=== PATIENT | male | born 1960 | race Caucasian/White ===

== ENCOUNTER 2023-11-14 19:18 | Inpatient (IN) | payer MEDICARE, OTHER ==
[~2023-11-14] VITALS: Ht 182.9 cm; Wt 73.9 kg
[2023-11-14] MEDS ORDERED: DIVA500T2 PO (19:41)
[2023-11-14] MEDS ORDERED: HYDR50TA62 PO (19:41)
[2023-11-14] MEDS ORDERED: CLOZ100T32 PO (19:41)
[2023-11-14] MEDS ORDERED: BENZ1TAB7 PO (19:41)
[2023-11-14] MEDS ORDERED: DICL50TA7 PO (19:53)
[2023-11-14] MEDS ORDERED: PANT40TA49 PO (19:53)
[2023-11-14] MEDS ORDERED: ALBU90AE INH (19:53)
[2023-11-14] MEDS ORDERED: FLUT1BLS6 IH (19:53)
[2023-11-14] MEDS ORDERED: DOCU100C36 PO (19:53)
[2023-11-14] MEDS ORDERED: FLAX100032 PO (19:53)
[2023-11-14] MEDS ORDERED: MULT-1045 PO (19:53)
[2023-11-14] MEDS ORDERED: TAMS-3 PO (19:53)
[2023-11-14] MEDS ORDERED: ASCO500C18 PO (19:53)
[2023-11-14] MEDS ORDERED: OLANZAPINE 5 MG TABLET PO ONE (20:00)
[2023-11-14 20:21] LABS: *BILIRUBIN,URIN NEGATIVE (NEGATIVE); *BLOOD, URINE NEGATIVE (NEGATIVE); *CLARITY,URINE CLEAR (CLEAR); *COLOR,URINE YELLOW (YELLOW); *KETONES,URINE 1+ (NEGATIVE); *PROTEIN,URINE NEGATIVE (NEGATIVE); LEUKOCYTE ESTERASE ,URINE NEGATIVE (NEGATIVE); NITRITE, URINE NEGATIVE (NEGATIVE); UGLUCOSE NEGATIVE (NEGATIVE)
[2023-11-14] MEDS ORDERED: OLANZAPINE 5 MG TABLET ONE (20:28)
[2023-11-14 20:29] LABS: *AMPHETAMINE, URINE NEGATIVE (NEGATIVE); *BARBITURATE, URINE NEGATIVE (NEGATIVE); *BENZODIAZEPINE, URINE NEGATIVE (NEGATIVE); *CANNABINOID, URINE NEGATIVE (NEGATIVE); *COCCAINE, URINE NEGATIVE (NEGATIVE); *OPIATE, URINE NEGATIVE (NEGATIVE); *PHENCYCLIDINE SCREEN,URINE NEGATIVE (NEGATIVE); FENTANYL, URINE NEGATIVE (NEGATIVE)
[2023-11-14 20:31] LABS: BASOPHILS # (AUTO) 0.1 K/UL (0.0-0.2); BASOPHILS % (AUTO) 0.8 % (0.0-2.0); EOSINOPHILS # (AUTO) 0.1 K/uL (0.0-0.7); HEMATOCRIT 35.3 % (36.7-47.1); HEMOGLOBIN 12.2 g/dL (12.5-16.3); LYMPHOCYTES # (AUTO) 2.9 K/uL (0.8-4.8); MEAN CORPUSCULAR HEMOGLOBIN 32.8 uug (23.8-33.4); MEAN CORPUSCULAR HGB CONC 35 g/dL (32.5-36.3); MEAN CORPUSCULAR VOLUME 94.8 fL (73.0-96.2); MONOCYTES # (AUTO) 0.3 K/uL (0.1-1.30); MONOCYTES % (AUTO) 4.3 % (0.0-11.0); NEUTROPHILS # (AUTO) 3.8 K/uL (1.8-8.9); NEUTROPHILS % (AUTO) 53.9 % (38.5-71.5); PLATELET COUNT (AUTO) 154 K/uL (152-348); RED BLOOD CELL COUNT(AUTO) 3.73 MIL/uL (4.06-5.63); RED CELL DISTRIBUTION WIDTH 14.1 % (12.1-16.2); WHITE BLOOD COUNT (AUTO) 7.1 K/uL (3.6-10.2)
[2023-11-14 20:40] LABS: CALCIUM 8.5 mg/dL (8.5-10.1); CARBON DIOXIDE 29 mmol/L (21-32); CHLORIDE 107 mmol/L (98-107); CREATININE 0.7 mg/dL (0.6-1.3); GLUCOSE 97 mg/dL (74-106); POTASSIUM 4.2 mmol/L (3.5-5.1); SODIUM SERUM 143 mmol/L (136-145); UREA NITROGEN, BLOOD 22 mg/dL (7-18)
[2023-11-14 20:43] LABS: ETHANOL < 3 MG/DL (0-10)
[2023-11-14 20:46] LABS: ACETAMINOPHEN < 2.0 ug/mL (10-30); ALANINE AMINOTRANSFERASE 30 U/L (16-63); ALBUMIN 3.1 g/dL (3.4-5.0); ALKALINE PHOSPHATASE 87 U/L (50-136); ASPARTATE AMINOTRANSFERASE 17 U/L (15-37); BILIRUBIN,DIRECT 0.2 mg/dL (0.0-0.2); BILIRUBIN,TOTAL 0.5 mg/dL (0.2-1.0); TOTAL PROTEIN, SERUM 5.9 g/dL (6.4-8.2); VALPROIC ACID 69 ug/mL (50-100)
[2023-11-14 20:53] LABS: THYROID STIMULATING HORMONE 2.204 mIU/mL (0.358-3.740)
[2023-11-15 01:00] VITALS: BP 119/78; TEMP 97.8; O2SAT 93
[2023-11-15] MEDS ORDERED: BLOOD SUGAR DIAGNOSTIC 1 EACH STRIP VI ONE (01:00)
[2023-11-15] MEDS ORDERED: MAGNESIUM HYDROXIDE 30 ML LIQUID UDC PO PRN (01:00)
[2023-11-15] MEDS ORDERED: MAG HYDROX/AL HYDROX/SIMETH 30 ML LIQUID UDC PO PRN (01:00)
[2023-11-15] MEDS: ZOLPIDEM 5 MG TABLET PO PRN ×2 (01:51→21:40)
[2023-11-15 08:35] VITALS: BP 102/78; TEMP 98.4; O2SAT 94
[2023-11-15] MEDS: BENZTROPINE MESYLATE 1 MG TABLET PO SCH ×2 (09:15→16:10)
[2023-11-15] MEDS: DIVALPROEX 500 MG TABLET.DR PO SCH ×3 (09:16→16:10)
[2023-11-15] MEDS: risperiDONE 2 MG TABLET PO SCH ×2 (09:16→16:10)
[2023-11-15] MEDS ORDERED: ALBUTEROL SULFATE 1.25 MG/3 ML NEBU NEB PRN (12:30)
[2023-11-15] MEDS ORDERED: HOME MED MISCELLANEOUS XX SCH (12:30)
[2023-11-15] MEDS ORDERED: DICLOFENAC 25 MG TABLET.DR PO PRN (12:30)
[2023-11-15] MEDS: ASCORBIC ACID 500 MG TABLET PO SCH (12:59)
[2023-11-15] MEDS: LORAZEPAM 1 MG TABLET PO PRN ×2 (14:32→23:31)
[2023-11-15 15:44] VITALS: BP 98/75; TEMP 98; O2SAT 96
[2023-11-15] MEDS: FLUTICASONE/VILANTEROL 1 EACH BLST.W.DEV INH SCH (16:18)
[2023-11-15 20:31] VITALS: BP 100/71; TEMP 98.1; O2SAT 93
[2023-11-15] MEDS: TAMSULOSIN HCL 0.4 MG CAP.SR.24H PO SCH (21:40)
[2023-11-15] MEDS: DOCUSATE SODIUM 100 MG CAPSULE PO SCH (21:40)
[2023-11-16] MEDS: PANTOPRAZOLE SODIUM 40 MG TABLET.DR PO SCH (06:03)
[2023-11-16 07:45] VITALS: BP 109/80; TEMP 98.4; O2SAT 98
[2023-11-16] MEDS: ASCORBIC ACID 500 MG TABLET PO SCH (08:48)
[2023-11-16] MEDS: risperiDONE 2 MG TABLET PO SCH ×2 (08:48→17:26)
[2023-11-16] MEDS: DIVALPROEX 500 MG TABLET.DR PO SCH ×3 (08:48→17:26)
[2023-11-16] MEDS: BENZTROPINE MESYLATE 1 MG TABLET PO SCH ×2 (08:48→17:26)
[2023-11-16] MEDS: MULTIVITAMINS,THERAPEUTIC TABLET PO SCH (08:48)
[2023-11-16] MEDS: FLUTICASONE/VILANTEROL 1 EACH BLST.W.DEV INH SCH (08:52)
[2023-11-16 16:39] VITALS: BP 120/72; TEMP 98.1; O2SAT 98
[2023-11-16 20:00] VITALS: BP 121/81; O2SAT 97
[2023-11-16] MEDS: LORAZEPAM 1 MG TABLET PO PRN (20:33)
[2023-11-16] MEDS: DOCUSATE SODIUM 100 MG CAPSULE PO SCH (20:33)
[2023-11-16] MEDS: TAMSULOSIN HCL 0.4 MG CAP.SR.24H PO SCH (20:33)
[2023-11-16] MEDS: ZOLPIDEM 5 MG TABLET PO PRN (23:06)
[2023-11-16] MEDS: ACETAMINOPHEN 325 MG TABLET PO PRN (23:06)
[2023-11-17] MEDS: PANTOPRAZOLE SODIUM 40 MG TABLET.DR PO SCH (06:33)
[2023-11-17] MEDS: LORAZEPAM 1 MG TABLET PO PRN (07:56)
[2023-11-17 07:59] VITALS: BP 102/65; TEMP 98.1; O2SAT 98
[2023-11-17] MEDS: risperiDONE 2 MG TABLET PO SCH ×2 (08:25→16:31)
[2023-11-17] MEDS: ASCORBIC ACID 500 MG TABLET PO SCH (08:25)
[2023-11-17] MEDS: MULTIVITAMINS,THERAPEUTIC TABLET PO SCH (08:25)
[2023-11-17] MEDS: DIVALPROEX 500 MG TABLET.DR PO SCH ×3 (08:25→16:31)
[2023-11-17] MEDS: BENZTROPINE MESYLATE 1 MG TABLET PO SCH ×2 (08:25→16:31)
[2023-11-17] MEDS: FLUTICASONE/VILANTEROL 1 EACH BLST.W.DEV INH SCH (08:26)
[2023-11-17 16:08] VITALS: BP 104/72; TEMP 98; O2SAT 99
[2023-11-17 20:00] VITALS: BP 103/70; TEMP 97.9; O2SAT 97
[2023-11-17] MEDS: TAMSULOSIN HCL 0.4 MG CAP.SR.24H PO SCH (20:12)
[2023-11-17] MEDS: DOCUSATE SODIUM 100 MG CAPSULE PO SCH (20:13)
[2023-11-18] MEDS: ZOLPIDEM 5 MG TABLET PO PRN ×2 (00:03→22:20)
[2023-11-18] MEDS: PANTOPRAZOLE SODIUM 40 MG TABLET.DR PO SCH (07:06)
[2023-11-18 08:06] VITALS: BP 107/78; TEMP 98.1; O2SAT 97
[2023-11-18] MEDS: FLUTICASONE/VILANTEROL 1 EACH BLST.W.DEV INH SCH (08:26)
[2023-11-18] MEDS: BENZTROPINE MESYLATE 1 MG TABLET PO SCH ×2 (08:26→16:16)
[2023-11-18] MEDS: DIVALPROEX 500 MG TABLET.DR PO SCH ×3 (08:26→16:16)
[2023-11-18] MEDS: MULTIVITAMINS,THERAPEUTIC TABLET PO SCH (08:26)
[2023-11-18] MEDS: ASCORBIC ACID 500 MG TABLET PO SCH (08:26)
[2023-11-18] MEDS: risperiDONE 2 MG TABLET PO SCH ×2 (08:26→16:16)
[2023-11-18 16:21] VITALS: BP 107/81; TEMP 98.3; O2SAT 98
[2023-11-18 20:00] VITALS: BP 105/66; TEMP 98.2; O2SAT 95
[2023-11-18] MEDS: DOCUSATE SODIUM 100 MG CAPSULE PO SCH (20:44)
[2023-11-18] MEDS: TAMSULOSIN HCL 0.4 MG CAP.SR.24H PO SCH (20:44)
[2023-11-19] MEDS: PANTOPRAZOLE SODIUM 40 MG TABLET.DR PO SCH (07:00)
[2023-11-19 08:06] VITALS: BP 123/84; TEMP 98.4; O2SAT 96
[2023-11-19] MEDS: FLUTICASONE/VILANTEROL 1 EACH BLST.W.DEV INH SCH (09:46)
[2023-11-19] MEDS: BENZTROPINE MESYLATE 1 MG TABLET PO SCH ×2 (09:47→17:47)
[2023-11-19] MEDS: risperiDONE 2 MG TABLET PO SCH ×2 (09:50→17:46)
[2023-11-19] MEDS: DIVALPROEX 500 MG TABLET.DR PO SCH ×3 (09:50→17:46)
[2023-11-19] MEDS: ASCORBIC ACID 500 MG TABLET PO SCH (09:50)
[2023-11-19] MEDS: MULTIVITAMINS,THERAPEUTIC TABLET PO SCH (09:51)
[2023-11-19 15:34] VITALS: BP 108/69; TEMP 97.8; O2SAT 96
[2023-11-19 20:00] VITALS: BP 102/79; TEMP 98; O2SAT 97
[2023-11-19] MEDS: TAMSULOSIN HCL 0.4 MG CAP.SR.24H PO SCH (20:55)
[2023-11-19] MEDS: DOCUSATE SODIUM 100 MG CAPSULE PO SCH (20:55)
[2023-11-19] MEDS: LORAZEPAM 1 MG TABLET PO PRN (20:55)
[2023-11-19] MEDS: ACETAMINOPHEN 325 MG TABLET PO PRN (22:59)
[2023-11-20] MEDS: PANTOPRAZOLE SODIUM 40 MG TABLET.DR PO SCH (07:09)
[2023-11-20 08:34] VITALS: BP 100/58; TEMP 98; O2SAT 94
[2023-11-20] MEDS: FLUTICASONE/VILANTEROL 1 EACH BLST.W.DEV INH SCH (10:08)
[2023-11-20] MEDS: risperiDONE 2 MG TABLET PO SCH ×2 (10:08→18:12)
[2023-11-20] MEDS: BENZTROPINE MESYLATE 1 MG TABLET PO SCH ×2 (10:08→18:11)
[2023-11-20] MEDS: MULTIVITAMINS,THERAPEUTIC TABLET PO SCH (10:08)
[2023-11-20] MEDS: DIVALPROEX 500 MG TABLET.DR PO SCH (10:09)
[2023-11-20] MEDS: ASCORBIC ACID 500 MG TABLET PO SCH (10:09)
[2023-11-20] MEDS: LORAZEPAM 1 MG TABLET PO PRN ×2 (11:31→20:40)
[2023-11-20] MEDS: ACETAMINOPHEN 325 MG TABLET PO PRN (11:32)
[2023-11-20 15:42] VITALS: BP 102/63; TEMP 98; O2SAT 98
[2023-11-20] MEDS: DIVALPROEX SPRINKLE 125 MG CAP.SPRINK PO SCH ×2 (15:45→18:12)
[2023-11-20 19:59] VITALS: BP 101/61; TEMP 98.1; O2SAT 95
[2023-11-20] MEDS: DOCUSATE SODIUM 100 MG CAPSULE PO SCH (20:40)
[2023-11-20] MEDS: TAMSULOSIN HCL 0.4 MG CAP.SR.24H PO SCH (20:40)
[2023-11-20] MEDS: ZOLPIDEM 5 MG TABLET PO PRN (23:47)
[2023-11-21] MEDS: ACETAMINOPHEN 325 MG TABLET PO PRN (00:03)
[2023-11-21] MEDS: PANTOPRAZOLE SODIUM 40 MG TABLET.DR PO SCH (06:45)
[2023-11-21 07:50] VITALS: BP 90/61; TEMP 97.8; O2SAT 99
[2023-11-21 08:00] VITALS: BP 115/66; TEMP 98; O2SAT 99
[2023-11-21] MEDS: DIVALPROEX SPRINKLE 125 MG CAP.SPRINK PO SCH ×3 (08:24→16:44)
[2023-11-21] MEDS: BENZTROPINE MESYLATE 1 MG TABLET PO SCH ×2 (08:24→16:45)
[2023-11-21] MEDS: MULTIVITAMINS,THERAPEUTIC TABLET PO SCH (08:24)
[2023-11-21] MEDS: ASCORBIC ACID 500 MG TABLET PO SCH (08:24)
[2023-11-21] MEDS: risperiDONE 2 MG TABLET PO SCH ×2 (08:25→16:44)
[2023-11-21] MEDS: FLUTICASONE/VILANTEROL 1 EACH BLST.W.DEV INH SCH (09:27)
[2023-11-21 15:11] VITALS: BP 101/71; TEMP 98; O2SAT 98
[2023-11-21 20:10] VITALS: BP 115/77; TEMP 98.1; O2SAT 96
[2023-11-21] MEDS: DOCUSATE SODIUM 100 MG CAPSULE PO SCH (20:18)
[2023-11-21] MEDS: TAMSULOSIN HCL 0.4 MG CAP.SR.24H PO SCH (20:18)
[2023-11-21] MEDS: LORAZEPAM 1 MG TABLET PO PRN (21:00)
[2023-11-22] MEDS: ACETAMINOPHEN 325 MG TABLET PO PRN (05:55)
[2023-11-22] MEDS: PANTOPRAZOLE SODIUM 40 MG TABLET.DR PO SCH (06:02)
[2023-11-22 08:42] VITALS: BP 106/80; TEMP 98; O2SAT 100
[2023-11-22] MEDS: MULTIVITAMINS,THERAPEUTIC TABLET PO SCH (08:49)
[2023-11-22] MEDS: BENZTROPINE MESYLATE 1 MG TABLET PO SCH ×2 (08:49→16:12)
[2023-11-22] MEDS: ASCORBIC ACID 500 MG TABLET PO SCH (08:50)
[2023-11-22] MEDS: risperiDONE 2 MG TABLET PO SCH ×2 (08:50→17:13)
[2023-11-22] MEDS: DIVALPROEX SPRINKLE 125 MG CAP.SPRINK PO SCH ×3 (08:52→16:12)
[2023-11-22] MEDS: FLUTICASONE/VILANTEROL 1 EACH BLST.W.DEV INH SCH (09:00)
[2023-11-22 15:12] VITALS: BP 112/72; TEMP 98; O2SAT 98
[2023-11-22] MEDS: DOCUSATE SODIUM 100 MG CAPSULE PO SCH (20:13)
[2023-11-22] MEDS: TAMSULOSIN HCL 0.4 MG CAP.SR.24H PO SCH (20:13)
[2023-11-22] MEDS: LORAZEPAM 1 MG TABLET PO PRN (20:17)
[2023-11-22 20:19] VITALS: BP 110/74; TEMP 98.1; O2SAT 97
[2023-11-23] MEDS: PANTOPRAZOLE SODIUM 40 MG TABLET.DR PO SCH (06:12)
[2023-11-23 07:56] VITALS: BP 104/75; TEMP 98.1; O2SAT 97
[2023-11-23] MEDS: LORAZEPAM 1 MG TABLET PO PRN (08:42)
[2023-11-23] MEDS: BENZTROPINE MESYLATE 1 MG TABLET PO SCH ×2 (08:42→18:01)
[2023-11-23] MEDS: ASCORBIC ACID 500 MG TABLET PO SCH (08:42)
[2023-11-23] MEDS: MULTIVITAMINS,THERAPEUTIC TABLET PO SCH (08:42)
[2023-11-23] MEDS: risperiDONE 2 MG TABLET PO SCH ×2 (08:42→18:01)
[2023-11-23] MEDS: DIVALPROEX SPRINKLE 125 MG CAP.SPRINK PO SCH ×3 (08:42→18:01)
[2023-11-23] MEDS: FLUTICASONE/VILANTEROL 1 EACH BLST.W.DEV INH SCH (09:03)
[2023-11-23 16:12] VITALS: BP 110/73; TEMP 98; O2SAT 97
[2023-11-23 20:00] VITALS: BP 105/80; TEMP 97.9; O2SAT 96
[2023-11-23] MEDS: DOCUSATE SODIUM 100 MG CAPSULE PO SCH (21:25)
[2023-11-23] MEDS: TAMSULOSIN HCL 0.4 MG CAP.SR.24H PO SCH (21:25)
[2023-11-23] MEDS: ZOLPIDEM 5 MG TABLET PO PRN (23:25)
[2023-11-24] MEDS: ZOLPIDEM 5 MG TABLET PO PRN (02:59)
[2023-11-24] MEDS: PANTOPRAZOLE SODIUM 40 MG TABLET.DR PO SCH (06:53)
[2023-11-24 07:15] LABS: BASOPHILS # (AUTO) 0.1 K/UL (0.0-0.2); BASOPHILS % (AUTO) 1.2 % (0.0-2.0); EOSINOPHILS # (AUTO) 0.1 K/uL (0.0-0.7); EOSINOPHILS % (AUTO) 1.4 % (0.0-7.0); HEMATOCRIT 37.2 % (36.7-47.1); HEMOGLOBIN 12.7 g/dL (12.5-16.3); LYMPHOCYTES # (AUTO) 2.6 K/uL (0.8-4.8); LYMPHOCYTES % (AUTO) 30.2 % (20.5-51.5); MEAN CORPUSCULAR HEMOGLOBIN 32.3 uug (23.8-33.4); MEAN CORPUSCULAR HGB CONC 34 g/dL (32.5-36.3); MEAN CORPUSCULAR VOLUME 94.7 fL (73.0-96.2); MONOCYTES # (AUTO) 0.7 K/uL (0.1-1.30); MONOCYTES % (AUTO) 8.3 % (0.0-11.0); NEUTROPHILS % (AUTO) 58.9 % (38.5-71.5); PLATELET COUNT (AUTO) 192 K/uL (152-348); RED BLOOD CELL COUNT(AUTO) 3.92 MIL/uL (4.06-5.63); RED CELL DISTRIBUTION WIDTH 13.9 % (12.1-16.2); WHITE BLOOD COUNT (AUTO) 8.5 K/uL (3.6-10.2)
[2023-11-24 07:18] LABS: DIFFERENTIAL COMMENT 1
[2023-11-24 07:32] LABS: ALBUMIN 3.2 g/dL (3.4-5.0); BILIRUBIN,TOTAL 0.5 mg/dL (0.2-1.0); CALCIUM 8.5 mg/dL (8.5-10.1); CREATININE 0.7 mg/dL (0.6-1.3); POTASSIUM 4.6 mmol/L (3.5-5.1); TOTAL PROTEIN, SERUM 6.3 g/dL (6.4-8.2)
[2023-11-24 08:10] VITALS: BP 100/74; TEMP 98; O2SAT 98
[2023-11-24] MEDS: BENZTROPINE MESYLATE 1 MG TABLET PO SCH ×2 (08:55→17:07)
[2023-11-24] MEDS: FLUTICASONE/VILANTEROL 1 EACH BLST.W.DEV INH SCH (08:55)
[2023-11-24] MEDS: MULTIVITAMINS,THERAPEUTIC TABLET PO SCH (08:56)
[2023-11-24] MEDS: ASCORBIC ACID 500 MG TABLET PO SCH (08:56)
[2023-11-24] MEDS: DIVALPROEX SPRINKLE 125 MG CAP.SPRINK PO SCH ×3 (08:56→17:08)
[2023-11-24] MEDS: risperiDONE 2 MG TABLET PO SCH ×2 (08:56→17:07)
[2023-11-24 16:43] VITALS: BP 92/60; TEMP 98.1; O2SAT 98
[2023-11-24 20:00] VITALS: BP 104/57; TEMP 98.2; O2SAT 94
[2023-11-24] MEDS: TAMSULOSIN HCL 0.4 MG CAP.SR.24H PO SCH (20:24)
[2023-11-24] MEDS: DOCUSATE SODIUM 100 MG CAPSULE PO SCH (20:24)
[2023-11-24] MEDS: ACETAMINOPHEN 325 MG TABLET PO PRN (21:53)
[2023-11-25] MEDS: LORAZEPAM 1 MG TABLET PO PRN (04:04)
[2023-11-25] MEDS: PANTOPRAZOLE SODIUM 40 MG TABLET.DR PO SCH (06:11)
[2023-11-25 07:47] VITALS: BP 98/64; TEMP 98.1; O2SAT 98
[2023-11-25] MEDS: BENZTROPINE MESYLATE 1 MG TABLET PO SCH ×2 (08:44→16:50)
[2023-11-25] MEDS: ASCORBIC ACID 500 MG TABLET PO SCH (08:44)
[2023-11-25] MEDS: MULTIVITAMINS,THERAPEUTIC TABLET PO SCH (08:44)
[2023-11-25] MEDS: risperiDONE 2 MG TABLET PO SCH ×2 (08:45→16:50)
[2023-11-25] MEDS: DIVALPROEX SPRINKLE 125 MG CAP.SPRINK PO SCH ×3 (08:45→16:50)
[2023-11-25] MEDS: FLUTICASONE/VILANTEROL 1 EACH BLST.W.DEV INH SCH (08:45)
[2023-11-25 16:09] VITALS: BP 104/64; TEMP 98.3; O2SAT 98
[2023-11-25 20:01] VITALS: BP 101/62; TEMP 98.2; O2SAT 95
[2023-11-25] MEDS: DOCUSATE SODIUM 100 MG CAPSULE PO SCH (20:31)
[2023-11-25] MEDS: TAMSULOSIN HCL 0.4 MG CAP.SR.24H PO SCH (20:32)
[2023-11-25] MEDS: ZOLPIDEM 5 MG TABLET PO PRN (21:22)
[2023-11-25] MEDS: ACETAMINOPHEN 325 MG TABLET PO PRN (23:08)
[2023-11-26] MEDS: PANTOPRAZOLE SODIUM 40 MG TABLET.DR PO SCH (06:13)
[2023-11-26 08:00] VITALS: BP 119/79; TEMP 97.9; O2SAT 96
[2023-11-26] MEDS: risperiDONE 2 MG TABLET PO SCH ×2 (09:11→17:33)
[2023-11-26] MEDS: ASCORBIC ACID 500 MG TABLET PO SCH (09:11)
[2023-11-26] MEDS: DIVALPROEX SPRINKLE 125 MG CAP.SPRINK PO SCH ×3 (09:11→17:33)
[2023-11-26] MEDS: BENZTROPINE MESYLATE 1 MG TABLET PO SCH ×2 (09:11→17:33)
[2023-11-26] MEDS: FLUTICASONE/VILANTEROL 1 EACH BLST.W.DEV INH SCH (09:12)
[2023-11-26] MEDS: MULTIVITAMINS,THERAPEUTIC TABLET PO SCH (09:12)
[2023-11-26 16:00] VITALS: BP 98/66; TEMP 97.8; O2SAT 100
[2023-11-26 19:34] VITALS: BP 101/70; TEMP 98; O2SAT 98
[2023-11-26] MEDS: TAMSULOSIN HCL 0.4 MG CAP.SR.24H PO SCH (21:04)
[2023-11-26] MEDS: DOCUSATE SODIUM 100 MG CAPSULE PO SCH (21:04)
[2023-11-26] MEDS: ZOLPIDEM 5 MG TABLET PO PRN (22:10)
[2023-11-27] MEDS: LORAZEPAM 1 MG TABLET PO PRN (01:58)
[2023-11-27] MEDS: PANTOPRAZOLE SODIUM 40 MG TABLET.DR PO SCH (06:55)
[2023-11-27 08:00] VITALS: BP 106/64; TEMP 97.9; O2SAT 100
[2023-11-27] MEDS: BENZTROPINE MESYLATE 1 MG TABLET PO SCH (08:59)
[2023-11-27] MEDS: DIVALPROEX SPRINKLE 125 MG CAP.SPRINK PO SCH ×2 (09:00→13:03)
[2023-11-27] MEDS: FLUTICASONE/VILANTEROL 1 EACH BLST.W.DEV INH SCH (09:00)
[2023-11-27] MEDS: MULTIVITAMINS,THERAPEUTIC TABLET PO SCH (09:00)
[2023-11-27] MEDS: ASCORBIC ACID 500 MG TABLET PO SCH (09:00)
[2023-11-27] MEDS: risperiDONE 2 MG TABLET PO SCH (09:00)
== END 2023-11-27 14:00 | DRG 885 ==
LOC: ER 19:25 → GPS 23:55
PROVIDERS: ADMIT Psychiatry & Neurology Psychiatry; ATTEND Nurse Practitioner Acute Care
DX: F20.0 Paranoid schizophrenia (principal); E44.0 Moderate protein-calorie malnutrition; Z68.22 Body mass index [BMI] 22.0-22.9, adult; J44.9 Chronic obstructive pulmonary disease, unspecified; E88.09 Other disorders of plasma-protein metabolism, not elsewhere classified; D64.9 Anemia, unspecified; K59.00 Constipation, unspecified; G24.01 Drug induced subacute dyskinesia; Z79.899 Other long term (current) drug therapy; F10.21 Alcohol dependence, in remission; R41.9 Unspecified symptoms and signs involving cognitive functions and awareness
CPT/HCPCS: 36415; 80164; 84443; 85025; 93005; A6209; G0480

== ENCOUNTER 2023-12-04 18:35 | Inpatient (IN) | payer MEDICARE, OTHER ==
[~2023-12-04] VITALS: Ht 182.9 cm; Wt 70.3 kg
[~2023-12-04 18:35] MED LIST: ALBU90AE INH; ASCO500C18 PO; DICL50TA7 PO; DOCU100C36 PO; FLAX100032 PO; FLUT1BLS6 IH; HYDR50TA62 PO; MULT-1045 PO; PANT40TA49 PO; TAMS-3 PO
[2023-12-04 20:38] LABS: BASOPHILS % (AUTO) 0.6 % (0.0-2.0); EOSINOPHILS # (AUTO) 0.1 K/uL (0.0-0.7); EOSINOPHILS % (AUTO) 1.5 % (0.0-7.0); HEMATOCRIT 38.9 % (36.7-47.1); HEMOGLOBIN 13.3 g/dL (12.5-16.3); LYMPHOCYTES # (AUTO) 2.2 K/uL (0.8-4.8); LYMPHOCYTES % (AUTO) 31.9 % (20.5-51.5); MEAN CORPUSCULAR HEMOGLOBIN 32.7 uug (23.8-33.4); MEAN CORPUSCULAR HGB CONC 34 g/dL (32.5-36.3); MEAN CORPUSCULAR VOLUME 95.5 fL (73.0-96.2); MONOCYTES # (AUTO) 0.7 K/uL (0.1-1.30); MONOCYTES % (AUTO) 10.2 % (0.0-11.0); NEUTROPHILS # (AUTO) 3.8 K/uL (1.8-8.9); NEUTROPHILS % (AUTO) 55.8 % (38.5-71.5); PLATELET COUNT (AUTO) 176 K/uL (152-348); RED BLOOD CELL COUNT(AUTO) 4.07 MIL/uL (4.06-5.63); RED CELL DISTRIBUTION WIDTH 13.6 % (12.1-16.2); WHITE BLOOD COUNT (AUTO) 6.8 K/uL (3.6-10.2)
[2023-12-04 20:42] LABS: DIFFERENTIAL COMMENT 1
[2023-12-04 20:48] LABS: CALCIUM 9.1 mg/dL (8.5-10.1); CARBON DIOXIDE 33 mmol/L (21-32); CHLORIDE 107 mmol/L (98-107); CREATININE 0.9 mg/dL (0.6-1.3); GLUCOSE 133 mg/dL (74-106); POTASSIUM 4.7 mmol/L (3.5-5.1); SODIUM SERUM 143 mmol/L (136-145); UREA NITROGEN, BLOOD 36 mg/dL (7-18)
[2023-12-04 20:54] LABS: ALANINE AMINOTRANSFERASE 46 U/L (16-63); ALBUMIN 3.8 g/dL (3.4-5.0); ALKALINE PHOSPHATASE 82 U/L (50-136); ASPARTATE AMINOTRANSFERASE 35 U/L (15-37); BILIRUBIN,DIRECT 0.3 mg/dL (0.0-0.2); BILIRUBIN,TOTAL 1.1 mg/dL (0.2-1.0)
[2023-12-04 20:56] LABS: ACETAMINOPHEN < 2.0 ug/mL (10-30)
[2023-12-04 21:01] LABS: THYROID STIMULATING HORMONE 3.684 mIU/mL (0.358-3.740)
[2023-12-04 21:38] LABS: ETHANOL < 3 MG/DL (0-10)
[2023-12-05] MEDS ORDERED: DIVA500T4 PO (00:49)
[2023-12-05] MEDS ORDERED: MIRT-121 PO (00:49)
[2023-12-05] MEDS ORDERED: ARIP5TAB10 PO (00:49)
[2023-12-05 01:00] VITALS: BP 94/66; TEMP 97.9; O2SAT 93
[2023-12-05] MEDS ORDERED: MAG HYDROX/AL HYDROX/SIMETH 30 ML LIQUID UDC PO PRN (01:00)
[2023-12-05] MEDS ORDERED: MAGNESIUM HYDROXIDE 30 ML LIQUID UDC PO PRN (01:00)
[2023-12-05 01:30] LABS: *BILIRUBIN,URIN NEGATIVE (NEGATIVE); *BLOOD, URINE NEGATIVE (NEGATIVE); *CLARITY,URINE CLEAR (CLEAR); *COLOR,URINE YELLOW (YELLOW); *KETONES,URINE 1+ (NEGATIVE); *PROTEIN,URINE NEGATIVE (NEGATIVE); *UROBILINOGEN,URINE 0.2 E.U./dl (NORMAL); LEUKOCYTE ESTERASE ,URINE NEGATIVE (NEGATIVE); NITRITE, URINE NEGATIVE (NEGATIVE); UGLUCOSE NEGATIVE (NEGATIVE)
[2023-12-05 02:02] LABS: *AMPHETAMINE, URINE NEGATIVE (NEGATIVE); *BARBITURATE, URINE NEGATIVE (NEGATIVE); *BENZODIAZEPINE, URINE NEGATIVE (NEGATIVE); *CANNABINOID, URINE NEGATIVE (NEGATIVE); *COCCAINE, URINE NEGATIVE (NEGATIVE); *OPIATE, URINE NEGATIVE (NEGATIVE); *PHENCYCLIDINE SCREEN,URINE NEGATIVE (NEGATIVE); FENTANYL, URINE NEGATIVE (NEGATIVE)
[2023-12-05 07:57] VITALS: BP 94/85; TEMP 98.2; O2SAT 96
[2023-12-05] MEDS: LORAZEPAM 1 MG TABLET PO PRN (09:59)
[2023-12-05] MEDS: risperiDONE 1 MG TABLET PO SCH ×2 (10:50→17:56)
[2023-12-05] MEDS: DIVALPROEX 500 MG TABLET.DR PO SCH ×3 (10:50→17:56)
[2023-12-05 15:26] VITALS: BP 95/64; TEMP 98.2; O2SAT 95
[2023-12-05] MEDS: diphenhydrAMINE 25 MG CAP PO SCH (17:56)
[2023-12-05 20:00] VITALS: BP 101/54; TEMP 97.6; O2SAT 96
[2023-12-05] MEDS ORDERED: DICLOFENAC POTASSIUM PO PRN (20:00)
[2023-12-05] MEDS: DOCUSATE SODIUM 100 MG CAPSULE PO SCH (22:10)
[2023-12-05] MEDS: ZOLPIDEM 5 MG TABLET PO PRN (23:44)
[2023-12-06] MEDS: PANTOPRAZOLE SODIUM 40 MG TABLET.DR PO SCH (07:15)
[2023-12-06 08:43] VITALS: BP 100/58; TEMP 98.4; O2SAT 94
[2023-12-06] MEDS ORDERED: TAMSULOSIN HCL 0.4 MG CAP.SR.24H PO SCH (09:00)
[2023-12-06] MEDS: MULTIVITAMINS,THERAPEUTIC TABLET PO SCH (09:58)
[2023-12-06] MEDS: diphenhydrAMINE 25 MG CAP PO SCH ×2 (09:58→17:22)
[2023-12-06] MEDS: DIVALPROEX 500 MG TABLET.DR PO SCH ×3 (09:58→17:22)
[2023-12-06] MEDS: risperiDONE 1 MG TABLET PO SCH ×2 (09:59→17:22)
[2023-12-06] MEDS: ASCORBIC ACID 500 MG TABLET PO SCH (09:59)
[2023-12-06] MEDS: LORAZEPAM 1 MG TABLET PO PRN (14:01)
[2023-12-06 15:22] VITALS: BP 100/61; TEMP 98.2; O2SAT 96
[2023-12-06 20:00] VITALS: BP 93/59; TEMP 98; O2SAT 94
[2023-12-06] MEDS: DOCUSATE SODIUM 100 MG CAPSULE PO SCH (20:46)
[2023-12-06] MEDS: TAMSULOSIN HCL 0.4 MG CAP.SR.24H PO SCH (20:46)
[2023-12-07] MEDS: ACETAMINOPHEN 325 MG TABLET PO PRN ×2 (00:55→23:23)
[2023-12-07] MEDS: ZOLPIDEM 5 MG TABLET PO PRN (00:56)
[2023-12-07] MEDS: PANTOPRAZOLE SODIUM 40 MG TABLET.DR PO SCH (06:17)
[2023-12-07 07:43] VITALS: BP 96/64; TEMP 98.2; O2SAT 97
[2023-12-07] MEDS: ASCORBIC ACID 500 MG TABLET PO SCH (10:10)
[2023-12-07] MEDS: MULTIVITAMINS,THERAPEUTIC TABLET PO SCH (10:10)
[2023-12-07] MEDS: diphenhydrAMINE 25 MG CAP PO SCH ×2 (10:10→17:55)
[2023-12-07] MEDS: risperiDONE 1 MG TABLET PO SCH ×2 (10:10→17:49)
[2023-12-07] MEDS: DIVALPROEX 500 MG TABLET.DR PO SCH ×3 (10:11→17:48)
[2023-12-07 16:10] VITALS: BP 98/67; TEMP 98; O2SAT 97
[2023-12-07 20:00] VITALS: BP 96/55; TEMP 97.6; O2SAT 93
[2023-12-07] MEDS: TAMSULOSIN HCL 0.4 MG CAP.SR.24H PO SCH (21:35)
[2023-12-07] MEDS: LORAZEPAM 1 MG TABLET PO PRN (21:35)
[2023-12-07] MEDS: DOCUSATE SODIUM 100 MG CAPSULE PO SCH (21:36)
[2023-12-08] MEDS: PANTOPRAZOLE SODIUM 40 MG TABLET.DR PO SCH (06:26)
[2023-12-08 07:52] VITALS: BP 94/63; TEMP 97.6; O2SAT 98
[2023-12-08] MEDS: diphenhydrAMINE 25 MG CAP PO SCH ×2 (08:40→17:54)
[2023-12-08] MEDS: MULTIVITAMINS,THERAPEUTIC TABLET PO SCH (08:40)
[2023-12-08] MEDS: DIVALPROEX 500 MG TABLET.DR PO SCH ×3 (08:40→17:53)
[2023-12-08] MEDS: ASCORBIC ACID 500 MG TABLET PO SCH (08:40)
[2023-12-08] MEDS: risperiDONE 1 MG TABLET PO SCH ×2 (08:41→17:55)
[2023-12-08 16:03] VITALS: BP 92/61; TEMP 97.8; O2SAT 98
[2023-12-08 20:00] VITALS: BP 92/53; TEMP 98; O2SAT 95
[2023-12-08] MEDS: TAMSULOSIN HCL 0.4 MG CAP.SR.24H PO SCH (21:02)
[2023-12-08] MEDS: DOCUSATE SODIUM 100 MG CAPSULE PO SCH (21:02)
[2023-12-08] MEDS: LORAZEPAM 1 MG TABLET PO PRN (21:02)
[2023-12-09] MEDS: PANTOPRAZOLE SODIUM 40 MG TABLET.DR PO SCH (06:59)
[2023-12-09 07:49] VITALS: BP 96/54; TEMP 97.7; O2SAT 96
[2023-12-09] MEDS: DIVALPROEX 500 MG TABLET.DR PO SCH ×3 (08:18→16:13)
[2023-12-09] MEDS: diphenhydrAMINE 25 MG CAP PO SCH ×2 (08:18→16:13)
[2023-12-09] MEDS: ASCORBIC ACID 500 MG TABLET PO SCH (08:18)
[2023-12-09] MEDS: risperiDONE 1 MG TABLET PO SCH ×2 (08:18→16:13)
[2023-12-09] MEDS: MULTIVITAMINS,THERAPEUTIC TABLET PO SCH (08:19)
[2023-12-09] MEDS: LORAZEPAM 1 MG TABLET PO PRN ×3 (12:22→22:06)
[2023-12-09 16:01] VITALS: BP 93/68; TEMP 98; O2SAT 97
[2023-12-09 20:00] VITALS: BP 106/75; TEMP 97.5; O2SAT 97
[2023-12-09] MEDS: DOCUSATE SODIUM 100 MG CAPSULE PO SCH (22:06)
[2023-12-09] MEDS: TAMSULOSIN HCL 0.4 MG CAP.SR.24H PO SCH (22:06)
[2023-12-10] MEDS: PANTOPRAZOLE SODIUM 40 MG TABLET.DR PO SCH (07:04)
[2023-12-10] MEDS: diphenhydrAMINE 25 MG CAP PO SCH ×2 (09:34→16:23)
[2023-12-10] MEDS: risperiDONE 1 MG TABLET PO SCH ×2 (09:34→16:23)
[2023-12-10] MEDS: DIVALPROEX 500 MG TABLET.DR PO SCH ×3 (09:34→16:23)
[2023-12-10] MEDS: MULTIVITAMINS,THERAPEUTIC TABLET PO SCH (09:34)
[2023-12-10] MEDS: ASCORBIC ACID 500 MG TABLET PO SCH (09:34)
[2023-12-10] MEDS: GLUCERNA SHAKE 237 ML CAN PO SCH (09:35)
[2023-12-10 15:10] VITALS: BP 99/62; TEMP 97.8; O2SAT 97
[2023-12-10 20:00] VITALS: BP 99/62; TEMP 98.6; O2SAT 96
[2023-12-10] MEDS: MIRTAZAPINE 15 MG TABLET PO SCH (21:19)
[2023-12-10] MEDS: DOCUSATE SODIUM 100 MG CAPSULE PO SCH (21:19)
[2023-12-10] MEDS: TAMSULOSIN HCL 0.4 MG CAP.SR.24H PO SCH (21:19)
[2023-12-11 03:35] VITALS: BP 120/71; O2SAT 96
[2023-12-11] MEDS: LORAZEPAM 1 MG TABLET PO PRN ×2 (03:50→19:41)
[2023-12-11] MEDS: PANTOPRAZOLE SODIUM 40 MG TABLET.DR PO SCH (06:10)
[2023-12-11 07:55] VITALS: BP 100/69; TEMP 98; O2SAT 98
[2023-12-11] MEDS: risperiDONE 1 MG TABLET PO SCH ×2 (08:40→17:28)
[2023-12-11] MEDS: MULTIVITAMINS,THERAPEUTIC TABLET PO SCH (08:40)
[2023-12-11] MEDS: diphenhydrAMINE 25 MG CAP PO SCH ×2 (08:40→17:28)
[2023-12-11] MEDS: ACETAMINOPHEN 325 MG TABLET PO PRN (08:40)
[2023-12-11] MEDS: DIVALPROEX 500 MG TABLET.DR PO SCH ×3 (08:41→17:28)
[2023-12-11] MEDS: ASCORBIC ACID 500 MG TABLET PO SCH (08:41)
[2023-12-11] MEDS: GLUCERNA SHAKE 237 ML CAN PO SCH (08:46)
[2023-12-11 15:06] VITALS: BP 102/81; TEMP 98; O2SAT 96
[2023-12-11 20:09] VITALS: BP 106/72; TEMP 98.1; O2SAT 95
[2023-12-11] MEDS: TAMSULOSIN HCL 0.4 MG CAP.SR.24H PO SCH (21:05)
[2023-12-11] MEDS: MIRTAZAPINE 15 MG TABLET PO SCH (21:06)
[2023-12-11] MEDS: DOCUSATE SODIUM 100 MG CAPSULE PO SCH (21:06)
[2023-12-12] MEDS: PANTOPRAZOLE SODIUM 40 MG TABLET.DR PO SCH (06:46)
[2023-12-12 08:16] VITALS: BP 90/49; TEMP 98.2; O2SAT 96
[2023-12-12] MEDS: diphenhydrAMINE 25 MG CAP PO SCH ×2 (09:19→16:24)
[2023-12-12] MEDS: risperiDONE 1 MG TABLET PO SCH ×2 (09:19→16:24)
[2023-12-12] MEDS: DIVALPROEX 500 MG TABLET.DR PO SCH ×3 (09:19→16:23)
[2023-12-12] MEDS: ASCORBIC ACID 500 MG TABLET PO SCH (09:19)
[2023-12-12] MEDS: MULTIVITAMINS,THERAPEUTIC TABLET PO SCH (09:19)
[2023-12-12] MEDS: GLUCERNA SHAKE 237 ML CAN PO SCH (09:20)
[2023-12-12 15:31] VITALS: BP 93/54; TEMP 97.8; O2SAT 95
[2023-12-12] MEDS: LORAZEPAM 1 MG TABLET PO PRN (17:58)
[2023-12-12 19:53] VITALS: BP 100/66; TEMP 98; O2SAT 95
[2023-12-12] MEDS: DOCUSATE SODIUM 100 MG CAPSULE PO SCH (20:10)
[2023-12-12] MEDS: MIRTAZAPINE 15 MG TABLET PO SCH (20:10)
[2023-12-12] MEDS: TAMSULOSIN HCL 0.4 MG CAP.SR.24H PO SCH (20:10)
[2023-12-12] MEDS: ZOLPIDEM 5 MG TABLET PO PRN (21:48)
[2023-12-12] MEDS: ACETAMINOPHEN 325 MG TABLET PO PRN (21:48)
[2023-12-13] MEDS: PANTOPRAZOLE SODIUM 40 MG TABLET.DR PO SCH (06:45)
[2023-12-13] MEDS: GLUCERNA SHAKE 237 ML CAN PO SCH (09:00)
[2023-12-13] MEDS: DIVALPROEX 500 MG TABLET.DR PO SCH ×3 (11:01→16:42)
[2023-12-13] MEDS: risperiDONE 1 MG TABLET PO SCH ×2 (11:01→16:43)
[2023-12-13] MEDS: ASCORBIC ACID 500 MG TABLET PO SCH (11:02)
[2023-12-13] MEDS: diphenhydrAMINE 25 MG CAP PO SCH ×2 (11:02→16:42)
[2023-12-13] MEDS: MULTIVITAMINS,THERAPEUTIC TABLET PO SCH (11:02)
[2023-12-13] MEDS ORDERED: OLANZAPINE 10 MG VIAL IM STA (13:59)
[2023-12-13 15:28] VITALS: BP 100/55; TEMP 98.2; O2SAT 98
[2023-12-13 20:00] VITALS: BP 112/73; TEMP 98.3; O2SAT 96
[2023-12-13] MEDS: DOCUSATE SODIUM 100 MG CAPSULE PO SCH (20:04)
[2023-12-13] MEDS: TAMSULOSIN HCL 0.4 MG CAP.SR.24H PO SCH (20:04)
[2023-12-13] MEDS: MIRTAZAPINE 15 MG TABLET PO SCH (20:04)
[2023-12-13] MEDS: ACETAMINOPHEN 325 MG TABLET PO PRN (21:35)
[2023-12-13] MEDS: ZOLPIDEM 5 MG TABLET PO PRN (21:35)
[2023-12-13] MEDS: LORAZEPAM 1 MG TABLET PO PRN (23:26)
[2023-12-14] MEDS: PANTOPRAZOLE SODIUM 40 MG TABLET.DR PO SCH (06:14)
[2023-12-14 07:41] VITALS: BP 100/76; TEMP 98.5; O2SAT 98
[2023-12-14] MEDS: risperiDONE 1 MG TABLET PO SCH ×2 (08:23→16:09)
[2023-12-14] MEDS: MULTIVITAMINS,THERAPEUTIC TABLET PO SCH (08:23)
[2023-12-14] MEDS: ASCORBIC ACID 500 MG TABLET PO SCH (08:23)
[2023-12-14] MEDS: DIVALPROEX 500 MG TABLET.DR PO SCH ×3 (08:23→16:09)
[2023-12-14] MEDS: diphenhydrAMINE 25 MG CAP PO SCH ×2 (08:23→16:09)
[2023-12-14] MEDS: GLUCERNA SHAKE 237 ML CAN PO SCH (08:24)
[2023-12-14] MEDS: ACETAMINOPHEN 325 MG TABLET PO PRN (16:09)
[2023-12-14 16:15] VITALS: BP 112/63; TEMP 98.2; O2SAT 98
[2023-12-14 19:56] VITALS: BP 114/69; TEMP 98.1; O2SAT 98
[2023-12-14] MEDS: MIRTAZAPINE 15 MG TABLET PO SCH (20:15)
[2023-12-14] MEDS: DOCUSATE SODIUM 100 MG CAPSULE PO SCH (20:15)
[2023-12-14] MEDS: TAMSULOSIN HCL 0.4 MG CAP.SR.24H PO SCH (20:15)
[2023-12-14] MEDS: LORAZEPAM 1 MG TABLET PO PRN (21:22)
[2023-12-14] MEDS: ZOLPIDEM 5 MG TABLET PO PRN (23:19)
[2023-12-15] MEDS: PANTOPRAZOLE SODIUM 40 MG TABLET.DR PO SCH (06:28)
[2023-12-15 07:32] VITALS: BP 97/54; TEMP 98.1; O2SAT 98
[2023-12-15] MEDS: DIVALPROEX 500 MG TABLET.DR PO SCH ×3 (08:21→16:28)
[2023-12-15] MEDS: risperiDONE 1 MG TABLET PO SCH ×2 (08:21→16:28)
[2023-12-15] MEDS: diphenhydrAMINE 25 MG CAP PO SCH ×2 (08:21→16:28)
[2023-12-15] MEDS: MULTIVITAMINS,THERAPEUTIC TABLET PO SCH (08:21)
[2023-12-15] MEDS: ASCORBIC ACID 500 MG TABLET PO SCH (08:21)
[2023-12-15] MEDS: GLUCERNA SHAKE 237 ML CAN PO SCH (08:22)
[2023-12-15 16:10] VITALS: BP 92/59; TEMP 98; O2SAT 97
[2023-12-15 19:38] VITALS: BP 96/70; TEMP 98.3; O2SAT 96
[2023-12-15] MEDS: TAMSULOSIN HCL 0.4 MG CAP.SR.24H PO SCH (20:27)
[2023-12-15] MEDS: DOCUSATE SODIUM 100 MG CAPSULE PO SCH (20:27)
[2023-12-15] MEDS: MIRTAZAPINE 15 MG TABLET PO SCH (20:27)
[2023-12-15] MEDS: LORAZEPAM 1 MG TABLET PO PRN (21:52)
[2023-12-16] MEDS: ZOLPIDEM 5 MG TABLET PO PRN (01:02)
[2023-12-16] MEDS: PANTOPRAZOLE SODIUM 40 MG TABLET.DR PO SCH (06:08)
[2023-12-16] MEDS: risperiDONE 1 MG TABLET PO SCH ×2 (08:09→16:08)
[2023-12-16] MEDS: ASCORBIC ACID 500 MG TABLET PO SCH (08:09)
[2023-12-16] MEDS: MULTIVITAMINS,THERAPEUTIC TABLET PO SCH (08:09)
[2023-12-16] MEDS: GLUCERNA SHAKE 237 ML CAN PO SCH (08:10)
[2023-12-16] MEDS: diphenhydrAMINE 25 MG CAP PO SCH ×2 (08:10→16:08)
[2023-12-16] MEDS: DIVALPROEX 500 MG TABLET.DR PO SCH ×3 (08:10→16:08)
[2023-12-16 16:07] VITALS: BP 104/69; TEMP 97.9; O2SAT 97
[2023-12-16] MEDS: ACETAMINOPHEN 325 MG TABLET PO PRN (16:36)
[2023-12-16 19:54] VITALS: BP 101/66; TEMP 98.1; O2SAT 96
[2023-12-16] MEDS: TAMSULOSIN HCL 0.4 MG CAP.SR.24H PO SCH (20:14)
[2023-12-16] MEDS: DOCUSATE SODIUM 100 MG CAPSULE PO SCH (20:14)
[2023-12-16] MEDS: MIRTAZAPINE 15 MG TABLET PO SCH (20:14)
[2023-12-17] MEDS: PANTOPRAZOLE SODIUM 40 MG TABLET.DR PO SCH (06:11)
[2023-12-17 07:30] VITALS: BP 91/59; TEMP 98.2; O2SAT 95
[2023-12-17] MEDS: ASCORBIC ACID 500 MG TABLET PO SCH (08:20)
[2023-12-17] MEDS: risperiDONE 1 MG TABLET PO SCH (08:20)
[2023-12-17] MEDS: MULTIVITAMINS,THERAPEUTIC TABLET PO SCH (08:20)
[2023-12-17] MEDS: GLUCERNA SHAKE 237 ML CAN PO SCH (08:20)
[2023-12-17] MEDS: diphenhydrAMINE 25 MG CAP PO SCH (08:20)
[2023-12-17] MEDS: DIVALPROEX 500 MG TABLET.DR PO SCH (08:20)
[2023-12-17] MEDS: LORAZEPAM 1 MG TABLET PO PRN (08:30)
[2023-12-17] MEDS ORDERED: LORAZEPAM 2 MG/1 ML VIAL IM ONE (09:45)
== END 2023-12-17 12:00 | DRG 885 ==
LOC: ER 18:36 → GPS 22:00
PROVIDERS: ADMIT Psychiatry & Neurology Psychiatry; ATTEND Internal Medicine
DX: F20.0 Paranoid schizophrenia (principal); G24.01 Drug induced subacute dyskinesia; F25.0 Schizoaffective disorder, bipolar type; F10.20 Alcohol dependence, uncomplicated; Y90.0 Blood alcohol level of less than 20 mg/100 ml; J45.909 Unspecified asthma, uncomplicated; N40.0 Benign prostatic hyperplasia without lower urinary tract symptoms; Z79.899 Other long term (current) drug therapy; R41.9 Unspecified symptoms and signs involving cognitive functions and awareness
CPT/HCPCS: 36415; 80164; 84443; 85025; G0480; J2060; J2358; Q0163

== ENCOUNTER 2023-12-22 17:00 | Inpatient (IN) | payer MEDICARE, OTHER ==
[~2023-12-22] VITALS: Ht 185.4 cm; Wt 71.7 kg
[~2023-12-22 17:00] MED LIST changes: -ALBU90AE INH; -ASCO500C18 PO; -DICL50TA7 PO; -FLAX100032 PO; -HYDR50TA62 PO; -MULT-1045 PO; -PANT40TA49 PO
[2023-12-22] MEDS ORDERED: LORAZEPAM 2 MG/1 ML VIAL ONE (17:34)
[2023-12-22] MEDS ORDERED: diphenhydrAMINE 50 MG/1 ML VIAL ONE (17:34)
[2023-12-22] MEDS ORDERED: HALOPERIDOL LACTATE 5 MG/1 ML VIAL ONE (17:34)
[2023-12-22] MEDS: LORAZEPAM 2 MG/1 ML VIAL IM ONE (17:47)
[2023-12-22] MEDS: diphenhydrAMINE 50 MG/1 ML VIAL IM ONE (17:48)
[2023-12-22] MEDS: HALOPERIDOL LACTATE 5 MG/1 ML VIAL IM ONE (17:48)
[2023-12-22 17:56] LABS: BASOPHILS # (AUTO) 0.2 K/UL (0.0-0.2); EOSINOPHILS # (AUTO) 0.2 K/uL (0.0-0.7); EOSINOPHILS % (AUTO) 4.4 % (0.0-7.0); HEMATOCRIT 38.3 % (36.7-47.1); LYMPHOCYTES # (AUTO) 1.1 K/uL (0.8-4.8); LYMPHOCYTES % (AUTO) 25.2 % (20.5-51.5); MEAN CORPUSCULAR HEMOGLOBIN 32.3 uug (23.8-33.4); MEAN CORPUSCULAR HGB CONC 34 g/dL (32.5-36.3); MEAN CORPUSCULAR VOLUME 95.6 fL (73.0-96.2); MONOCYTES # (AUTO) 0.4 K/uL (0.1-1.30); NEUTROPHILS # (AUTO) 2.4 K/uL (1.8-8.9); NEUTROPHILS % (AUTO) 56.5 % (38.5-71.5); PLATELET COUNT (AUTO) 137 K/uL (152-348); RED BLOOD CELL COUNT(AUTO) 4.01 MIL/uL (4.06-5.63); RED CELL DISTRIBUTION WIDTH 13.5 % (12.1-16.2); WHITE BLOOD COUNT (AUTO) 4.2 K/uL (3.6-10.2)
[2023-12-22 17:58] LABS: DIFFERENTIAL COMMENT 1; MONOCYTES % (AUTO) 10.7 % (0.0-11.0)
[2023-12-22 18:08] LABS: *BILIRUBIN,URIN NEGATIVE (NEGATIVE); *BLOOD, URINE NEGATIVE (NEGATIVE); *CLARITY,URINE CLEAR (CLEAR); *COLOR,URINE YELLOW (YELLOW); *KETONES,URINE 1+ (NEGATIVE); *PROTEIN,URINE NEGATIVE (NEGATIVE); *UROBILINOGEN,URINE 0.2 E.U./dl (NORMAL); LEUKOCYTE ESTERASE ,URINE NEGATIVE (NEGATIVE); NITRITE, URINE NEGATIVE (NEGATIVE); UGLUCOSE NEGATIVE (NEGATIVE)
[2023-12-22 18:09] LABS: ETHANOL < 3 MG/DL (0-10)
[2023-12-22] MEDS ORDERED: MULT-594 PO (18:13)
[2023-12-22] MEDS ORDERED: ASCO500C18 PO (18:13)
[2023-12-22] MEDS ORDERED: MAGN400O6 PO (18:13)
[2023-12-22] MEDS ORDERED: MAG-151 PO (18:13)
[2023-12-22] MEDS ORDERED: DIPH-873 PO (18:13)
[2023-12-22] MEDS ORDERED: ZOLP5TAB8 PO (18:13)
[2023-12-22] MEDS ORDERED: RISP3TAB61 PO (18:13)
[2023-12-22] MEDS ORDERED: ACET325T53 PO (18:13)
[2023-12-22] MEDS ORDERED: LORA0.5T48 PO (18:13)
[2023-12-22] MEDS ORDERED: MIRT7.5T10 PO (18:13)
[2023-12-22] MEDS ORDERED: DIVA500T2 PO (18:13)
[2023-12-22] MEDS ORDERED: PANT40TA2 PO (18:13)
[2023-12-22 18:16] LABS: *AMPHETAMINE, URINE NEGATIVE (NEGATIVE); *BARBITURATE, URINE NEGATIVE (NEGATIVE); *BENZODIAZEPINE, URINE NEGATIVE (NEGATIVE); *CANNABINOID, URINE NEGATIVE (NEGATIVE); *COCCAINE, URINE NEGATIVE (NEGATIVE); *OPIATE, URINE NEGATIVE (NEGATIVE); *PHENCYCLIDINE SCREEN,URINE NEGATIVE (NEGATIVE)
[2023-12-22 18:17] LABS: ALANINE AMINOTRANSFERASE 17 U/L (16-63); ALBUMIN 3.3 g/dL (3.4-5.0); ALKALINE PHOSPHATASE 77 U/L (50-136); ASPARTATE AMINOTRANSFERASE 12 U/L (15-37); BILIRUBIN,DIRECT 0.2 mg/dL (0.0-0.2); BILIRUBIN,TOTAL 0.6 mg/dL (0.2-1.0); CALCIUM 8.5 mg/dL (8.5-10.1); CARBON DIOXIDE 29 mmol/L (21-32); CHLORIDE 106 mmol/L (98-107); CREATININE 0.8 mg/dL (0.6-1.3); GLUCOSE 88 mg/dL (74-106); POTASSIUM 3.7 mmol/L (3.5-5.1); SODIUM SERUM 141 mmol/L (136-145); TOTAL PROTEIN, SERUM 6.4 g/dL (6.4-8.2); UREA NITROGEN, BLOOD 18 mg/dL (7-18)
[2023-12-22 18:30] LABS: FENTANYL, URINE NEGATIVE (NEGATIVE)
[2023-12-22 18:31] LABS: ACETAMINOPHEN < 2.0 ug/mL (10-30)
[2023-12-22 20:30] VITALS: BP 101/56; TEMP 98.2; O2SAT 94
[2023-12-22] MEDS ORDERED: ACETAMINOPHEN 325 MG TABLET PO PRN (20:30)
[2023-12-22] MEDS ORDERED: MAGNESIUM HYDROXIDE 30 ML LIQUID UDC PO PRN (21:30)
[2023-12-22] MEDS ORDERED: MAG HYDROX/AL HYDROX/SIMETH 30 ML LIQUID UDC PO PRN (21:30)
[2023-12-23] MEDS: PANTOPRAZOLE SODIUM 40 MG TABLET.DR PO SCH (06:28)
[2023-12-23 07:47] VITALS: BP 103/67; TEMP 98.1; O2SAT 98
[2023-12-23] MEDS ORDERED: MAGNESIUM HYDROXIDE 30 ML LIQUID UDC PO SCH (09:00)
[2023-12-23 09:29] LABS: ALBUMIN 3.3 g/dL (3.4-5.0); BILIRUBIN,TOTAL 0.5 mg/dL (0.2-1.0); CALCIUM 8.4 mg/dL (8.5-10.1); POTASSIUM 4.5 mmol/L (3.5-5.1); TOTAL PROTEIN, SERUM 6.4 g/dL (6.4-8.2)
[2023-12-23] MEDS ORDERED: diphenhydrAMINE 25 MG/10 ML UDC NG SCH (09:45)
[2023-12-23] MEDS: DOCUSATE SODIUM 100 MG CAPSULE PO SCH (10:15)
[2023-12-23] MEDS: MULTIVITAMINS,THERAPEUTIC TABLET PO SCH (10:15)
[2023-12-23] MEDS: TAMSULOSIN HCL 0.4 MG CAP.SR.24H PO SCH (10:15)
[2023-12-23] MEDS: ASCORBIC ACID 500 MG TABLET PO SCH (10:16)
[2023-12-23] MEDS: HALOPERIDOL 5 MG TABLET PO SCH (10:59)
[2023-12-23] MEDS: LITHIUM CARBONATE 300 MG CAPSULE PO SCH (11:00)
[2023-12-23] MEDS: diphenhydrAMINE 25 MG CAP PO SCH (11:45)
[2023-12-23] MEDS: DIVALPROEX 500 MG TABLET.DR PO SCH (13:39)
[2023-12-23 16:13] VITALS: BP 131/72; TEMP 98; O2SAT 97
[2023-12-23 20:02] VITALS: BP 105/78; TEMP 98.1; O2SAT 98
[2023-12-24 08:14] VITALS: BP 93/58; TEMP 97.8; O2SAT 96
[2023-12-24] MEDS: FLUTICASONE/VILANTEROL 1 EACH BLST.W.DEV INH SCH (12:00)
[2023-12-24 16:00] VITALS: BP 99/53; TEMP 97.6; O2SAT 98
[2023-12-24] MEDS: LORAZEPAM 1 MG TABLET PO PRN (17:51)
[2023-12-24 20:01] VITALS: BP 123/64; TEMP 98.1; O2SAT 94
[2023-12-24] MEDS: TAMSULOSIN HCL 0.4 MG CAP.SR.24H PO SCH (20:37)
[2023-12-25 08:01] VITALS: BP 90/53; TEMP 98; O2SAT 96
[2023-12-25] MEDS: HALOPERIDOL 5 MG TABLET PO SCH (09:05)
[2023-12-25] MEDS: diphenhydrAMINE 50 MG/1 ML VIAL IM ONE (11:14)
[2023-12-25] MEDS: HALOPERIDOL LACTATE 5 MG/1 ML VIAL IM ONE (11:14)
[2023-12-25 15:39] VITALS: BP 116/68; TEMP 98; O2SAT 98
[2023-12-25 20:07] VITALS: BP 118/67; TEMP 98.1; O2SAT 100
[2023-12-26 08:02] VITALS: BP 96/56; TEMP 98; O2SAT 98
[2023-12-26 15:10] VITALS: BP 99/62; TEMP 98.4; O2SAT 99
[2023-12-26] MEDS: ACETAMINOPHEN 325 MG TABLET PO PRN (16:34)
[2023-12-26 20:00] VITALS: BP 91/49; TEMP 97.2; O2SAT 97
[2023-12-27 08:00] VITALS: BP 115/73; TEMP 97.8; O2SAT 97
[2023-12-27 15:53] VITALS: BP 110/75; TEMP 98.2; O2SAT 96
[2023-12-27 20:00] VITALS: BP 109/75; TEMP 97.9; O2SAT 95
[2023-12-28 08:17] VITALS: BP 121/79; TEMP 97.9; O2SAT 98
[2023-12-28 16:26] VITALS: BP 92/62; TEMP 97.9; O2SAT 97
[2023-12-28 20:00] VITALS: BP 94/62; TEMP 97.9; O2SAT 95
[2023-12-29 08:44] VITALS: BP 90/62; TEMP 98; O2SAT 94
[2023-12-29 15:55] VITALS: BP 90/53; TEMP 98; O2SAT 94
[2023-12-29 19:54] VITALS: BP 93/61; TEMP 98.1; O2SAT 96
[2023-12-29] MEDS: ZOLPIDEM 5 MG TABLET PO PRN (21:36)
[2023-12-30 08:07] VITALS: BP 96/59; TEMP 97.9; O2SAT 98
[2023-12-30] MEDS: HALOPERIDOL LACTATE 5 MG/1 ML VIAL IM STA (09:28)
[2023-12-30] MEDS: diphenhydrAMINE 50 MG/1 ML VIAL IM STA (09:28)
[2023-12-30 16:14] VITALS: BP 98/77; TEMP 98; O2SAT 97
[2023-12-30 19:55] VITALS: BP 104/72; TEMP 98.1; O2SAT 97
[2023-12-31 08:46] VITALS: BP 95/53; TEMP 98; O2SAT 99
[2023-12-31 11:10] LABS: BASOPHILS % (AUTO) 0.5 % (0.0-2.0); EOSINOPHILS # (AUTO) 0.1 K/uL (0.0-0.7); EOSINOPHILS % (AUTO) 1.4 % (0.0-7.0); HEMATOCRIT 38.1 % (36.7-47.1); HEMOGLOBIN 12.9 g/dL (12.5-16.3); LYMPHOCYTES # (AUTO) 1.7 K/uL (0.8-4.8); LYMPHOCYTES % (AUTO) 26.6 % (20.5-51.5); MEAN CORPUSCULAR HEMOGLOBIN 32.7 uug (23.8-33.4); MEAN CORPUSCULAR HGB CONC 34 g/dL (32.5-36.3); MEAN CORPUSCULAR VOLUME 96.2 fL (73.0-96.2); MONOCYTES # (AUTO) 0.5 K/uL (0.1-1.30); MONOCYTES % (AUTO) 7.5 % (0.0-11.0); NEUTROPHILS # (AUTO) 4.1 K/uL (1.8-8.9); PLATELET COUNT (AUTO) 194 K/uL (152-348); RED BLOOD CELL COUNT(AUTO) 3.96 MIL/uL (4.06-5.63); WHITE BLOOD COUNT (AUTO) 6.4 K/uL (3.6-10.2)
[2023-12-31 11:18] LABS: DIFFERENTIAL COMMENT 1
[2023-12-31 11:31] LABS: THYROID STIMULATING HORMONE 3.939 mIU/mL (0.358-3.740)
[2023-12-31 12:00] LABS: ALBUMIN 3.6 g/dL (3.4-5.0); BILIRUBIN,TOTAL 0.8 mg/dL (0.2-1.0); CALCIUM 9.1 mg/dL (8.5-10.1); MAGNESIUM 2.4 mg/dL (1.8-2.4); PHOSPHOROUS 3.6 mg/dL (2.5-4.9); POTASSIUM 4.5 mmol/L (3.5-5.1); TOTAL PROTEIN, SERUM 6.8 g/dL (6.4-8.2)
[2023-12-31] MEDS: HALOPERIDOL 5 MG TABLET PO SCH (12:19)
[2023-12-31 15:54] VITALS: BP 97/78; TEMP 97.8; O2SAT 97
[2023-12-31 20:24] VITALS: BP 112/65; TEMP 98.1; O2SAT 97
[2024-01-01 07:59] VITALS: BP 117/86; TEMP 98; O2SAT 96
[2024-01-01] MEDS: LORAZEPAM 1 MG TABLET PO ONE (14:26)
[2024-01-01 15:17] VITALS: BP 110/66; TEMP 98; O2SAT 96
== END 2024-01-01 16:15 | DRG 885 ==
LOC: ER 17:03 → GPS 20:13
PROVIDERS: ADMIT Psychiatry & Neurology Psychiatry
DX: F25.0 Schizoaffective disorder, bipolar type (principal); J44.89 Other specified chronic obstructive pulmonary disease; G24.01 Drug induced subacute dyskinesia; Z79.899 Other long term (current) drug therapy; N40.0 Benign prostatic hyperplasia without lower urinary tract symptoms; I25.10 Atherosclerotic heart disease of native coronary artery without angina pectoris; G62.9 Polyneuropathy, unspecified; G40.909 Epilepsy, unspecified, not intractable, without status epilepticus; I73.9 Peripheral vascular disease, unspecified; R79.89 Other specified abnormal findings of blood chemistry; Z87.820 Personal history of traumatic brain injury; Z91.52 Personal history of nonsuicidal self-harm; R41.9 Unspecified symptoms and signs involving cognitive functions and awareness; R29.6 Repeated falls; R26.81 Unsteadiness on feet
CPT/HCPCS: 36415; 70030-TC; 80164; 83735; 84100; 84443; 85025; 93005; A4663; G0480; J1200; J1630; J2060; Q0163

== ENCOUNTER 2025-05-05 15:53 | Emergency (ER) | payer MEDICARE, OTHER ==
[~2025-05-05 15:53] MED LIST changes: +ACET325T53 PO; +ASCO500C18 PO; +DIPH-873 PO; +MAG-151 PO; +MAGN400O6 PO; +MULT-594 PO; +PANT40TA2 PO
== END 2025-05-05 16:04 | disposition left against medical advice (07) ==
LOC: ER 15:57
DX: R45.1 Restlessness and agitation (principal); Z53.21 Procedure and treatment not carried out due to patient leaving prior to being seen by health care provider